=== PATIENT | female | born 1995 | race Caucasian/White ===

== ENCOUNTER 2020-11-14 23:24 | Emergency (ER) | payer SELFPAY ==
--- NOTE | 2020-11-14 23:41 | NUR ---
CALLED 3 TIMES NO ANSWER, PT LEFT W/O BEING TRIAGED
== END 2020-11-14 23:42 | disposition left against medical advice (07) ==
LOC: ER 23:28
DX: Z75.3 Unavailability and inaccessibility of health-care facilities (principal)

== ENCOUNTER 2020-11-15 01:20 | Emergency (ER) | payer OTHER ==
[~2020-11-15] VITALS: Ht 165.1 cm; Wt 83.9 kg
[2020-11-15 02:15] LABS: BASOPHILS % (AUTO) 0.7 % (0.0-2.0); CARBON DIOXIDE 25 mmol/L (21-32); CHLORIDE 107 mmol/L (98-107); CREATININE 0.6 mg/dL (0.6-1.3); EOSINOPHILS # (AUTO) 0.4 K/uL (0.0-0.7); EOSINOPHILS % (AUTO) 5.4 % (0.0-7.0); GLUCOSE 88 mg/dL (74-106); HEMATOCRIT 34.6 % (31.2-41.9); LYMPHOCYTES # (AUTO) 2.1 K/uL (20.0-40.0); LYMPHOCYTES % (AUTO) 32.1 % (20.5-51.5); MEAN CORPUSCULAR HEMOGLOBIN 23.9 uug (24.7-32.8); MEAN CORPUSCULAR HGB CONC 32 g/dL (32.3-35.6); MEAN CORPUSCULAR VOLUME 75.1 fL (75.5-95.3); MONOCYTES # (AUTO) 0.5 K/uL (2.0-10.0); MONOCYTES % (AUTO) 7.2 % (0.0-11.0); NEUTROPHILS # (AUTO) 3.6 K/uL (1.8-8.9); NEUTROPHILS % (AUTO) 54.6 % (38.5-71.5); PLATELET COUNT (AUTO) 295 K/uL (179-408); POTASSIUM 3.7 mmol/L (3.5-5.1); UREA NITROGEN, BLOOD 13 mg/dL (7-18); WHITE BLOOD COUNT (AUTO) 6.6 K/uL (3.8-11.8)
[2020-11-15 02:17] LABS: ETHANOL < 3 MG/DL (0-0)
[2020-11-15 02:17] LABS: *AMPHETAMINE, URINE NEGATIVE (NEGATIVE); *CANNABINOID, URINE POSITIVE (NEGATIVE); *COCCAINE, URINE NEGATIVE (NEGATIVE); *OPIATE, URINE NEGATIVE (NEGATIVE); *PHENCYCLIDINE SCREEN,URINE NEGATIVE (NEGATIVE)
[2020-11-15 02:28] LABS: ACETAMINOPHEN < 2.0 ug/mL (10-30); ALANINE AMINOTRANSFERASE 34 U/L (14-59); ALKALINE PHOSPHATASE 70 U/L (50-136); ASPARTATE AMINOTRANSFERASE 24 U/L (15-37); BILIRUBIN,DIRECT 0.1 mg/dL (0.0-0.2); BILIRUBIN,TOTAL 0.2 mg/dL (0.2-1.0); TOTAL PROTEIN, SERUM 7.7 g/dL (6.4-8.2)
--- NOTE | 2020-11-15 02:42 | NUR ---
Medically cleared by DR Segura. Called [facility] intake . Will Fax SBAR to .
--- NOTE | 2020-11-15 03:58 | NUR ---
Patient sleeping with no distress noted.
--- NOTE | 2020-11-15 05:01 | NUR ---
Called [facility]. ETA is [phone].
--- NOTE | 2020-11-15 05:08 | NUR ---
Gave SBAR report to Rob nurse from [facility].
--- NOTE | 2020-11-15 06:40 | NUR ---
Gave SBAR report to [facility] ambulance [id number].
== END 2020-11-15 06:46 ==
LOC: ER 01:27
DX: R44.0 Auditory hallucinations (principal); Z59.0 Homelessness; Z86.59 Personal history of other mental and behavioral disorders; Z20.822 Contact with and (suspected) exposure to COVID-19
CPT/HCPCS: 36415; 85025; A4663; G0480